=== PATIENT | male | born 1975 | race African-American/Black ===

== ENCOUNTER 2017-01-24 18:40 | Inpatient (IN) | payer OTHER ==
[~2017-01-24] VITALS: Ht 165.1 cm; Wt 64.0 kg
--- NOTE | 2017-01-24 18:50 | NUR ---
PT IS IN ROOM #2A. DR CLEVELAND EVALUATED THE PT.
[2017-01-24] MEDS ORDERED: METO25TA6 PO (18:59)
[2017-01-24] MEDS ORDERED: CLOP75TA15 PO (18:59)
[2017-01-24] MEDS ORDERED: ATOR20TA PO (18:59)
[2017-01-24] MEDS ORDERED: NITROGLYCERIN OINT 1 GM PACKET TP ONE ×2 (19:00→19:18)
[2017-01-24] MEDS ORDERED: MORPHINE SULFATE 2 MG/1 ML DISP.SYRIN IV ONE (19:00)
[2017-01-24] MEDS ORDERED: IV NORMAL SALINE 1000 ML BAG IV ONE (19:00)
[2017-01-24] MEDS ORDERED: ONDANSETRON 4 MG/2 ML VIAL IV ONE (19:00)
[2017-01-24] MEDS ORDERED: FLUC200T8 PO (19:01)
--- NOTE | 2017-01-24 19:15 | NUR ---
REPORT GIVEN TO ASSEMBLER BRAZER RN,
[2017-01-24] MEDS ORDERED: MORPHINE SULFATE 4 MG/1 ML DISP.SYRIN ONE ×3 (19:17→20:29)
--- NOTE | 2017-01-24 19:17 | NUR ---
Received report from KWESI Cadena. Assumed care of pt at this time. Fluid bolus started, infusing freely to gravity. Pt sts he had no change in pain with previous medication. Will monitor further for effects of medication. Pt resting in position of comfort for self. Resp even and unlabored.
[2017-01-24] MEDS ORDERED: ONDANSETRON 4 MG/2 ML VIAL ONE (19:18)
[2017-01-24 19:28] LABS: CREATININE 1.2 mg/dL (0.6-1.3); POTASSIUM 4.3 mmol/L (3.5-5.1)
[2017-01-24 19:30] LABS: EOSINOPHILS # (AUTO) 0.5 K/uL (0.0-0.7); EOSINOPHILS % (AUTO) 5.3 % (0.0-7.0); HEMATOCRIT 32.5 % (40-50); HEMOGLOBIN 10.9 G/DL (14.0-18.0); LYMPHOCYTES # (AUTO) 2.4 K/UL (0.8-4.8); MEAN CORPUSCULAR VOLUME 90.9 FL (82.0-92.0); NEUTROPHILS # (AUTO) 5.5 K/UL (1.8-8.9)
[2017-01-24] MEDS ORDERED: MORPHINE SULFATE 4 MG/1 ML DISP.SYRIN IV ONE ×2 (19:30→20:15)
[2017-01-24 19:32] LABS: BASOPHILS # (AUTO) 0.1 K/uL (0.0-8.0); BASOPHILS % (AUTO) 0.7 % (0.0-2.0); LYMPHOCYTES % (AUTO) 26.8 % (20.5-51.5); MEAN CORPUSCULAR HEMOGLOBIN 30.6 UUG (27.0-31.0); MEAN CORPUSCULAR HGB CONC 34 g/dL (32.0-37.0); MONOCYTES # (AUTO) 0.5 K/UL (0.1-1.30); NEUTROPHILS % (AUTO) 61.2 % (38.5-71.5); PLATELET COUNT (AUTO) 271 K/UL (150-450); RED BLOOD CELL COUNT(AUTO) 3.58 MIL/UL (4.7-6.1)
--- NOTE | 2017-01-24 19:36 | NUR ---
Pt cont to c/o severe pain, no change with previous pain medication. Dr. Moreira notified, pt medicated for discomfort. Will monitor for effects of medication. Pt resting in position of comfort for self. Resp even and unlabored. Remains NSR on monitor
[2017-01-24 19:41] LABS: BILIRUBIN,DIRECT 0.1 mg/dL (0.0-0.2); BILIRUBIN,TOTAL 0.3 mg/dL (0.2-1.0); TOTAL PROTEIN, SERUM 7.6 g/dL (6.4-8.2)
--- NOTE | 2017-01-24 20:48 | NUR ---
TRANSFERED TO 2ND FLOOR TELE VIA [facility]HEMI
--- NOTE | 2017-01-24 20:55 | NUR ---
RECEIVED PATIENT FROM ER VIA GURNEY. PT IS ALERT, ADMITTED TO TELE UNDER THE CARE OF DR. JOLLEY. DX: CHEST PAIN. ADMISSION PROCESS, CORE MEASURES, CARE PLAN INITIATED. BELONGING LIST DONE. MD NOTIFIED FOR NEW ADMISSION ORDERS. SAFETY MEASURES IN PLACE, CALL LIGHT WITHIN REACH, WILL CONTINUE TO MONITOR.
[2017-01-24 21:09] VITALS: BP 103/65
[2017-01-24] MEDS ORDERED: HYDROCODONE/APAP 5-325MG TABLET PO PRN (22:15)
[2017-01-24] MEDS ORDERED: ZOLPIDEM 5 MG TABLET PO PRN (22:15)
[2017-01-24] MEDS ORDERED: ATORVASTATIN 20 MG TABLET PO SCH (22:15)
[2017-01-24] MEDS ORDERED: ACETAMINOPHEN 325 MG TABLET PO PRN (22:15)
[2017-01-24] MEDS ORDERED: NITROGLYCERIN 0.3 MG/TAB BOTTLE SL PRN (22:15)
[2017-01-24] MEDS ORDERED: MAGNESIUM HYDROXIDE 30 ML LIQUID UDC PO PRN (22:15)
[2017-01-24] MEDS: HYDROMORPHONE 1 MG/1 ML DISP.SYRIN IV PRN (22:51)
[2017-01-24] MEDS ORDERED: ATORVASTATIN 20 MG TABLET ONE (23:00)
[2017-01-24] MEDS ORDERED: HYDROMORPHONE 1 MG/1 ML DISP.SYRIN ONE (23:01)
--- NOTE | 2017-01-24 23:15 | NUR ---
PT HAS OWN PRESCRIBED MEDICATIONS 1 BOTTLE OF FLUCONAZOLE 200MG TABLETS. PER PATIENT, FLUCONAZOLE WAS PRESCRIBED TO HIM WHEN HE WAS DIAGNOSED WITH VALLEY FEVER 3 WEEKS AGO. DISCUSSED WITH PATIENT REGARDING HOSPITAL POLICY ON PATIENT'S OWN MEDICATIONS, PATIENT VERBALIZED UNDERSTANDING. HOME MED RECONCILIATION DONE BY DR. JOLLEY, TO CONTINUE FLUCONAZOLE (PLS REFER TO MED RECONCILIATION RECORD). NOTIFIED JEWEL BEARING TURNER. WILL TURN IN MEDICATION WHEN PHARMACY OPENS IN THE MORNING. WILL ENDORSE TO ONCOMING SHIFT RN.
[2017-01-25] VITALS: BP 100/56
[2017-01-25 04:00] VITALS: BP 101/67
[2017-01-25] MEDS: HYDROMORPHONE 1 MG/1 ML DISP.SYRIN IV PRN ×5 (05:59→20:21)
[2017-01-25] MEDS ORDERED: HYDROMORPHONE 1 MG/1 ML DISP.SYRIN ONE (06:12)
[2017-01-25] MEDS: ONDANSETRON 4 MG/2 ML VIAL IV PRN ×3 (06:20→11:05)
--- NOTE | 2017-01-25 06:30 | NUR ---
PT SLEPT WELL, IN NO ACUTE DISTRESS. PT IS ON TELE - SR. PAIN MANAGEMENT ORDERED FOR C/O OF LEFT CHEST PAIN. VS STABLE. WILL CONTINUE TO MONITOR
[2017-01-25] MEDS ORDERED: ONDANSETRON 4 MG/2 ML VIAL ONE (06:33)
[2017-01-25 06:42] LABS: BASOPHILS % (AUTO) 0.5 % (0.0-2.0); EOSINOPHILS # (AUTO) 0.5 K/uL (0.0-0.7); HEMATOCRIT 30.6 % (40-50); HEMOGLOBIN 10.5 G/DL (14.0-18.0); LYMPHOCYTES # (AUTO) 3.3 K/UL (0.8-4.8); LYMPHOCYTES % (AUTO) 37.5 % (20.5-51.5); MEAN CORPUSCULAR HEMOGLOBIN 32.1 UUG (27.0-31.0); MEAN CORPUSCULAR HGB CONC 35 g/dL (32.0-37.0); MONOCYTES # (AUTO) 0.5 K/UL (0.1-1.30); MONOCYTES % (AUTO) 6.3 % (0.0-11.0); NEUTROPHILS # (AUTO) 4.4 K/UL (1.8-8.9); NEUTROPHILS % (AUTO) 49.7 % (38.5-71.5); PLATELET COUNT (AUTO) 246 K/UL (150-450); RED BLOOD CELL COUNT(AUTO) 3.29 MIL/UL (4.7-6.1); WHITE BLOOD COUNT (AUTO) 8.7 K/UL (4.0-11.2)
[2017-01-25 06:51] LABS: BILIRUBIN,TOTAL 0.3 mg/dL (0.2-1.0); CREATININE 0.9 mg/dL (0.6-1.3); PHOSPHOROUS 4.2 mg/dL (2.5-4.9); POTASSIUM 4.1 mmol/L (3.5-5.1)
[2017-01-25] MEDS: PANTOPRAZOLE SODIUM 40 MG TABLET.DR PO SCH (07:00)
--- NOTE | 2017-01-25 07:20 | NUR ---
RECEIVED REPORT FROM DISPLAY MANAGER NURSE, PATIENT IN BED ASLEEP, NO EVIDENCE OF DISTRESS NOTED. BED IN LOW POSITION, SIDE RAILS UP X2.
[2017-01-25] MEDS ORDERED: INFLUENZA VACCINE 2017-2018 0.5 ML DISP.SYRIN IM ONE (09:00)
[2017-01-25] MEDS: FLUCONAZOLE 200 MG TABLET PO SCH (09:42)
[2017-01-25] MEDS: ASPIRIN EC 81 MG TABLET.DR PO SCH (09:42)
[2017-01-25] MEDS: CLOPIDOGREL 75 MG TABLET PO SCH (09:43)
[2017-01-25] MEDS: METOPROLOL TARTRATE 25 MG TABLET PO SCH ×2 (09:43→20:40)
[2017-01-25 11:15] VITALS: BP 105/59
[2017-01-25] MEDS ORDERED: LORAZEPAM 2 MG/1 ML VIAL IV PRN (12:00)
--- NOTE | 2017-01-25 14:00 | NUR ---
MULTIPLE TESTS PERFORMED TODAY ON PATIENT, CT, ECHOCARDIOGRAPH, AND LAB TESTS. PATIENT TOLERATED WELL, BUT HAD A DOSE OF DILAUDID PRIOR TO CT HE WAS IN TOO MUCH PAIN TO GO WITHOUT IT.
[2017-01-25 15:02] VITALS: BP 110/61
--- NOTE | 2017-01-25 18:00 | NUR ---
PATIENT HAVING EPISODE OF DIARRHEA ACCORDING TO PATIENT.
[2017-01-25 20:00] VITALS: BP 98/48
--- NOTE | 2017-01-25 20:20 | NUR ---
patient awake,alert,afebrile,c/o pain to left upper chest and abdomen,Dilaudid 1 mg iv admin with effective,patient c/o diarrhea,when checked noted soft form stool small amount will continue closely monitor.
[2017-01-25] MEDS ORDERED: DOCUSATE SODIUM 250 MG CAPSULE PO SCH (21:00)
[2017-01-25] MEDS ORDERED: DOCUSATE SODIUM 100 MG CAPSULE PO SCH (21:00)
[2017-01-25] MEDS ORDERED: ATORVASTATIN 20 MG TABLET PO SCH (21:00)
[2017-01-26 00:17] VITALS: BP 105/63
[2017-01-26 04:00] VITALS: BP 101/72
--- NOTE | 2017-01-26 05:47 | NUR ---
no acute changed ,vital signs WNL,NSR on monitor,patient slept well through the night.
[2017-01-26] MEDS: PANTOPRAZOLE SODIUM 40 MG TABLET.DR PO SCH (06:09)
[2017-01-26] MEDS: HYDROMORPHONE 1 MG/1 ML DISP.SYRIN IV PRN ×2 (06:09→10:32)
[2017-01-26 06:48] LABS: BASOPHILS % (AUTO) 0.5 % (0.0-2.0); EOSINOPHILS # (AUTO) 0.6 K/uL (0.0-0.7); EOSINOPHILS % (AUTO) 7.2 % (0.0-7.0); HEMATOCRIT 36.1 % (40-50); LYMPHOCYTES # (AUTO) 2.6 K/UL (0.8-4.8); LYMPHOCYTES % (AUTO) 33.2 % (20.5-51.5); MEAN CORPUSCULAR HGB CONC 33 g/dL (32.0-37.0); MEAN CORPUSCULAR VOLUME 92.8 FL (82.0-92.0); MONOCYTES # (AUTO) 0.4 K/UL (0.1-1.30); MONOCYTES % (AUTO) 5.1 % (0.0-11.0); NEUTROPHILS # (AUTO) 4.3 K/UL (1.8-8.9); PLATELET COUNT (AUTO) 269 K/UL (150-450); RED BLOOD CELL COUNT(AUTO) 3.88 MIL/UL (4.7-6.1); WHITE BLOOD COUNT (AUTO) 7.9 K/UL (4.0-11.2)
[2017-01-26 06:49] LABS: BILIRUBIN,TOTAL 0.4 mg/dL (0.2-1.0); MAGNESIUM 1.8 mg/dL (1.8-2.4); PHOSPHOROUS 3.6 mg/dL (2.5-4.9); POTASSIUM 3.8 mmol/L (3.5-5.1); TOTAL PROTEIN, SERUM 7.6 g/dL (6.4-8.2)
--- NOTE | 2017-01-26 07:20 | NUR ---
RECEIVED REPORT FROM LACQUER COATER NURSE, PATIENT IN BED AWAKE, COMPLAINING OF PAIN. EXPLAINED TO PATIENT THAT HE JUST HAD MEDICATION AND THAT IT MAY TAKE SOME TIME TO TAKE EFFECT. RE-EVALUATION WILL OCCUR IN 30 MINUTES.
[2017-01-26] MEDS: CLOPIDOGREL 75 MG TABLET PO SCH (08:24)
[2017-01-26] MEDS: ASPIRIN EC 81 MG TABLET.DR PO SCH (08:24)
[2017-01-26] MEDS: FLUCONAZOLE 200 MG TABLET PO SCH (08:25)
[2017-01-26] MEDS: METOPROLOL TARTRATE 25 MG TABLET PO SCH (08:25)
[2017-01-26] MEDS ORDERED: FLUCONAZOLE 200MG TABLET PO SCH (09:00)
--- NOTE | 2017-01-26 10:10 | NUR ---
PATIENT REPORTED SEVERE PAIN, PAIN MEDICATION OFFERED TO PATIENT AND PATIENT STATED THAT IT WOULD NOT WORK, BUT HE WILL TRY IT ANYWAYS.
[2017-01-26 11:00] VITALS: BP 102/57
[2017-01-26] MEDS ORDERED: ASPI-618 PO (12:24)
[2017-01-26] MEDS ORDERED: HYDR-3326 PO (12:24)
[2017-01-26] MEDS ORDERED: ACET325T53 PO (12:24)
[2017-01-26] MEDS ORDERED: Nitroglycerin Sl SL (12:24)
--- NOTE | 2017-01-26 13:35 | NUR ---
PATIENT WAS INFORMED THAT DR ROMAN WILL BE IN LATER AROUND 3 OR 4 PM. PATIENT STATED THAT HE SHOULD HAVE BEEN HERE LAST NIGHT. OFFERED PATIENT PHONE NUMBER TO FOLLOW UP AN OUTPATIENT TO DR ROMAN'S OFFICE. PATIENT STARTED CURSING AND STATED THAT I SHOULD HAVE ALL OF HIS PAPERWORK SO HE CAN LEAVE AND GET TO [place]. IV WAS REMOVED, EDUCATION PROVIDED, HOME MEDICATIONS RETURNED.
--- NOTE | 2017-01-26 13:55 | NUR ---
PATIENT WAS DISCHARGED WITH A TOKEN FOR THE BUS.
== END 2017-01-26 13:40 | disposition home or self-care (01) | DRG 137 ==
LOC: ER 18:41 → TELE 20:37
PROVIDERS: ADMIT Internal Medicine; ATTEND Internal Medicine
DX: B38.0 Acute pulmonary coccidioidomycosis (principal); N17.0 Acute kidney failure with tubular necrosis; I25.10 Atherosclerotic heart disease of native coronary artery without angina pectoris; E88.09 Other disorders of plasma-protein metabolism, not elsewhere classified; E78.5 Hyperlipidemia, unspecified; F06.4 Anxiety disorder due to known physiological condition; Z95.5 Presence of coronary angioplasty implant and graft; I25.2 Old myocardial infarction; Z87.442 Personal history of urinary calculi; F17.210 Nicotine dependence, cigarettes, uncomplicated; Z79.02 Long term (current) use of antithrombotics/antiplatelets; Z79.82 Long term (current) use of aspirin; Z88.0 Allergy status to penicillin; D53.9 Nutritional anemia, unspecified; Z59.0 Homelessness; Z76.5 Malingerer [conscious simulation]; Z79.899 Other long term (current) drug therapy; R73.9 Hyperglycemia, unspecified; R91.8 Other nonspecific abnormal finding of lung field
CPT/HCPCS: 36415; 70030-TC; 71010; 71250; 83735; 84100; 84443; 84481; 85025; 85730; 93005; 93307; A4663; J1170; J2270; J2405; J7030